=== PATIENT | female | born 1990 | race Caucasian/White ===

== ENCOUNTER 2019-12-20 17:50 | Emergency (ER) | payer MEDICAID ==
[~2019-12-20] VITALS: Ht 162.6 cm; Wt 90.9 kg
[~2019-12-20 17:50] MED LIST: HYDROCODONE-APA1 TAB PO; IBUPROFEN600 MG PO
[2019-12-20 18:01] VITALS: Ht 162.6 cm; Wt 90.9 kg
[2019-12-20 18:32] LABS: HCG URINE NEGATIVE (NEGATIVE)
[2019-12-20 18:33] LABS: BILIRUBIN NEGATIVE (NEGATIVE); GLUCOSE NEGATIVE (NEGATIVE); KETONE NEGATIVE (NEGATIVE); NITRITE NEGATIVE (NEGATIVE); SPECIFIC GRAVITY 1.025 (1.005-1.020); UROBILINOGEN NORMAL (NORMAL)
[2019-12-20 18:34] LABS: RED CELLS - URINE 0-5 /hpf (0-5); WHITE CELLS - URINE 0-5 /hpf (NEGATIVE)
[2019-12-20 18:35] LABS: BACTERIA FEW /hpf (NEGATIVE)
[2019-12-20 19:12] LABS: BASOPHILS 0.4 % (0-2); EOSINOPHILS 1.3 % (0-7); HEMATOCRIT 40.6 % (36.0-48.0); HEMOGLOBIN 13.4 g/dL (12-16); IMMATURE GRANULOCYTES 0.1 % (0-5); LYMPHOCYTES 30.6 % (15-50); MCH 28.6 pg (26.0-34.0); MCV 86.8 fL (80.0-100.0); MEAN PLATELET VOLUME 9.3 fL (7.4-10.4); MONOCYTES 7.8 % (2-11); NEUTROPHILS 59.8 % (40-80); RBC 4.68 10x6/uL (4.00-5.40); RDW 14.4 % (11.5-14.5)
[2019-12-20 19:13] LABS: PLATELET COUNT 311 10x3/uL (130-400)
[2019-12-20] MEDS ORDERED: PROVERA10 MG PO (19:14)
[2019-12-20 19:25] LABS: ANION GAP 11.5 mmol/L (8-16); CALCIUM 8.6 mg/dL (8.5-10.1); POTASSIUM - SERUM 3.5 mmol/L (3.5-5.1)
[2019-12-20 19:29] LABS: HCG SERUM NEGATIVE (NEGATIVE)
[2019-12-20 19:32] LABS: ALBUMIN 3.9 g/dL (3.4-5.0); BILIRUBIN - TOTAL 0.36 mg/dL (0.2-1.3); PROTEIN - SERUM 7.6 g/dL (6.4-8.2)
[2019-12-20 19:45] VITALS: BP 158/82
== END 2019-12-20 19:45 | disposition home or self-care (01) ==
LOC: D.ER 17:50
PROVIDERS: Family Medicine
DX: N93.9 Abnormal uterine and vaginal bleeding, unspecified (principal); I10 Essential (primary) hypertension; Z72.0 Tobacco use

== ENCOUNTER 2020-01-11 07:10 | Day surgery (SDC) | payer MEDICAID ==
[2020-01-10 09:25] LABS: CALC OSMOLALITY 271 mosm/kg (275-300); CALCIUM 8.3 mg/dL (8.5-10.1); CARBON DIOXIDE 24.2 mmol/L (21.0-32.0); CHLORIDE - SERUM 102 mmol/L (98-107); CREATININE - SERUM 0.9 mg/dL (0.6-1.3); GLUCOSE 105 mg/dL (74-106); POTASSIUM - SERUM 4.1 mmol/L (3.5-5.1); SODIUM 136 mmol/L (136-145); UREA NITROGEN 13 mg/dL (7-18); eGFR NON AFRICAN AMERICAN 80 mL/min (90-120)
[2020-01-10 09:30] LABS: BASOPHILS 0.2 % (0-2); EOSINOPHILS 1.6 % (0-7); HEMATOCRIT 40.6 % (36.0-48.0); HEMOGLOBIN 13.7 g/dL (12-16); IMMATURE GRANULOCYTES 0.2 % (0-5); LYMPHOCYTES 26.7 % (15-50); MCH 29.1 pg (26.0-34.0); MCHC 33.7 g/dL (31.0-37.0); MCV 86.4 fL (80.0-100.0); MEAN PLATELET VOLUME 9.4 fL (7.4-10.4); MONOCYTES 9.5 % (2-11); NEUTROPHILS 61.8 % (40-80); PLATELET COUNT 324 10x3/uL (130-400); RDW 14.9 % (11.5-14.5); WBC 5.2 10x3/uL (4.8-10.8)
--- NOTE | 2020-01-10 10:21 | NUR ---
POX-97% HR- 77 RR- 16 BP LA-123/74 T- 97.7
[~2020-01-11] VITALS: Ht 162.6 cm; Wt 91.6 kg
--- NOTE | ~2020-01-11 | OP ---
PATIENT NAME: LUPE COLLINS MEDICAL RECORD: [id number] :92 LOCATION:D.OPS ADMISSION DATE: SURGEON: REMI WILKINS MD DATE OF OPERATION: 01/11/2020 PREOPERATIVE DIAGNOSES: 1. Gallstones. 2. Tobacco dependence syndrome. POSTOPERATIVE DIAGNOSES: 1. Gallstones. 2. Tobacco dependence syndrome. PROCEDURE: Laparoscopic cholecystectomy. SURGEON: Remi Wilkins MD REPORT OF PROCEDURE: The patient's abdomen was prepped and draped in sterile fashion. A cutdown was made on the superior aspect of the umbilicus, 0 Vicryls were placed in the fascia bilaterally and the fascia was incised with 15-blade. I then bluntly entered the peritoneal cavity and placed a 12-mm Nika port. Under direct visualization, a 5-mm trocar was placed in the epigastrium and two more 5-mm trocars were placed in the right subcostal region. The gallbladder was grasped and elevated. The cystic artery and cystic duct were dissected free and had our critical view of safety. These were clipped proximally and distally and ligated in standard fashion. The gallbladder was taken off the liver bed using electrocautery and placed into the right upper quadrant. We inspected the right upper quadrant and assured there was no sign of any bleeding or bile leakage. The ports and insufflation were then removed and the gallbladder was taken out through the umbilicus. The umbilical fascia was closed with interrupted 0 Vicryls times 3. The wounds were then irrigated out with normal saline and infused with 10 mL of 0.25% Marcaine with epinephrine. The skin incisions were all closed with subcutaneous 5-0 Monocryl and dressed appropriately. COMPLICATIONS: None. CONDITION: Stable. ANESTHESIA: General endotracheal and local. BLOOD LOSS: Minimal. TRANSINT:[id number] Voice Confirmation ID: [id number] DOCUMENT ID: [id number] REMI WILKINS MD CC: TANMAY [employer] [id number] DICTATION DATE: 01/11/20 1003 MECHANIC SENIOR: 01/11/20 1202 [facility] [address] [id number]
[~2020-01-11 07:10] MED LIST changes: +NAPROXEN375 M1 PO; +PEPCID AC20 MG PO; +PROVERA10 MG PO
[2020-01-11 08:22] VITALS: BP 130/72; Ht 162.6 cm; Wt 91.6 kg
[2020-01-11 08:52] LABS: HCG URINE NEGATIVE (NEGATIVE)
[2020-01-11] MEDS ORDERED: IBUPROFEN800 MG PO (10:01)
--- NOTE | 2020-01-11 17:40 | NUR ---
1147 IV DC'D. CATHETER TIP INTACT. NO BLEEDING AT SITE. BANDAID APPLIED. REVIEWED DISCHARGE INSTRUCTIONS WITH PATIENT WHO VOICES UNDERSTANDING OF INSTRUCTIONS.
--- NOTE | 2020-01-11 17:46 | NUR ---
1203 PT PAIN LEVEL DECREASED TO 5 OUT OF 10 FROM A 8 OUT OF 10 AFTER NSAID GIVEN EARLIER. PT STATES SHE FEELS BETTER AND IS READY TO GO HOME
== END 2020-01-11 12:06 | disposition home or self-care (01) ==
LOC: D.OPS 07:10 → D.PAN 09:15 → D.OPS 12:06
PROVIDERS: ATTEND Surgery
DX: K80.80 Other cholelithiasis without obstruction (principal); F17.200 Nicotine dependence, unspecified, uncomplicated